=== PATIENT | male | born 1940 | race Caucasian/White ===

== ENCOUNTER 2017-02-18 23:11 | Inpatient (IN) | payer OTHER, MEDICARE ==
[~2017-02-18] VITALS: Ht 167.6 cm; Wt 75.9 kg
[~2017-02-18 23:11] MED LIST: ACID CONTROL20 MG PO; ACID CONTROLLER20 MG PO; ADULT LOW DOSE81 M1 PO; AMBIEN5 M1 PO; AMLODIPINE BES2.5 MG PO; ASPIR 8181 MG PO; ASPIR-TRIN325 M1 PO; ASPIRIN325 MG PO; ASPIRIN81 M1 PO; Antivert PO; Aspirin PO; B-121500 MCG PO; CARDIZEM CD,CA360 MG PO; CHILDREN'S ASPI81 M1 PO; COLACE100 MG PO; COZAAR50 MG PO; CRESTOR40 MG PO; CYANOCOBALAM1000 MCG PO; DIABETA,MICRONAS5 MG PO; DIABETA5 MG PO; Diabeta,Micronase PO; EMETROL ORAL S236 ML PO; EMS NITROSTAT0.4 M1 SL; ENDOCET 5-3251 EACH PO; ESCITALOPRAM OX10 MG PO; ESCITALOPRAM OX20 MG PO; Ecotrin PO; FAMOTIDINE20 MG PO; FLEXERIL10 MG PO; FORTAMET1000 M1 PO; FUROSEMIDE20 MG PO; GABAPENTIN600 MG PO; GAS-X80 MG PO; GLUCOPHAGE1000 MG PO; GLUCOPHAGE500 MG PO; GLYBURIDE5 MG PO; Glyburide PO; HALFPRIN162 MG PO; HYDRALAZINE HCL25 MG PO; HYDROCHLOROTH12.5 M3 NG; HYDROCHLOROTH12.5 M3 PO; HYDROCHLOROTHIA25 MG PO; HYDROCO/APAP; HYDROCODON-ACE1 EAC7 PO; HYDRODIURIL,O12.5 M2 PO; Hydrochlorothiazide PO; IMDUR120 MG PO; IMDUR30 MG PO; IMDUR60 MG PO; ISOSORBIDE MONO30 MG PO; ISOSORBIDE MONO60 MG PO; Imdur PO; JANUVIA100 MG PO; K-DUR10 MEQ PO; KLOR-CON 1010 ME1 PO; LEXAPRO10 MG PO; LEXAPRO5 MG PO; LO-DOSE ASPIRIN81 M1 PO; LOPRESSOR12.5 MG PO; LOPRESSOR25 MG PO; LOPRESSOR50 MG PO; LORTAB 5-325 M1 EACH PO; Lexapro PO; Lopressor PO; METFORMIN HCL1000 MG PO; METOPROLOL ER; METOPROLOL SUC100 MG PO; METOPROLOL TART50 MG PO; MICARDIS HCT1 TABLE1 PO; NEURONTIN600 MG PO; NEXIUM40 MG PO; NITROGLYCERIN0.4 MG SL; NITROLINGUAL S4.9 GM MM; NITROSTAT,NITR0.4 M1 SL; NITROSTAT0.4 MG SL; NORCO 5/3251 TABLET PO; NORVASC2.5 MG PO; NORVASC5 MG PO; Neurontin PO; Nitroglycerin SL; Norvasc PO; OMEGA 3 1,0001 EACH PO; OMEGA III EPA1000 MG PO; OMEGA-3 1,0001 EAC1 PO; OMEGA-3 FISH O1 EAC9 PO; OMEGA-31000 M1 PO; Omega III EPA + DHA PO; PEPCID20 MG PO; PLAVIX75 MG PO; PRAVACHOL40 MG PO; PRAVASTATIN SOD40 MG PO; PREVACID30 MG PO; PRILOSEC20 MG PO; PROBIOTIC1 EAC1 PO; PROTONIX40 MG PO; Pepcid PO; RANEXA1000 MG PO; RANEXA500 MG PO; RANITIDINE HCL150 M1 PO; RANITIDINE HCL150 MG PO; REGLAN10 MG PO; Robitussin, Organidi PO; SALINE NASAL SP45 ML BOTH NARES; SALINE NOSE SPR45 M1 BOTH NARES; TOPROL XL100 MG PO; TYLENOL EXTRA500 MG PO; TYLENOL REGULA325 MG PO; Tylenol Regular Stre PO; VITAMIN B12-FO1 EACH PO; VITAMIN D-32000 UNI2 PO; VITAMIN D-32000 UNIT PO; VITAMIN D1000 UNIT PO; VITAMIN D2000 INTUN PO; VITAMIN D2000 UNIT PO; Vitamin D PO; ZOFRAN4 MG PO
[2017-02-19 00:02] LABS: HEMATOCRIT 46.6 % (38.0-50.0); MCH 30.3 PG (29.0-34.0); MCHC 35.8 G/DL (30.0-36.0); MCV 84.4 FL (86-99); PLATELET COUNT 125 K/uL (156-360); RBC DIS.WIDTH-CV 13.6 % (11.8-14.6); RBC DIS.WIDTH-SD 41.6 % (39-53); RED BLOOD COUNT 5.52 M/uL (4.00-5.50); WHITE BLOOD COUNT 9.5 K/uL (4.1-10.2)
[2017-02-19] MEDS ORDERED: FAMOTIDINE20 MG PO (00:08)
[2017-02-19] MEDS ORDERED: CENTRUM SILVER1 EAC3 PO (00:08)
[2017-02-19 00:11] LABS: PROTHROMBIN TIME 11.3 SEC (10.2-12.9)
[2017-02-19 00:14] LABS: CHLORIDE 97 mEq/L (99-109); POTASSIUM 4.3 mEq/L (3.7-5.4); PTT 28.9 SEC (25-37); SODIUM 132 mEq/L (136-147)
[2017-02-19 00:17] LABS: ANION GAP 13 MEQ/L (2-14)
[2017-02-19 00:19] LABS: GFR ESTIMATE (CALCULATED) 53 mL/min/
[2017-02-19 00:20] LABS: UREA NITROGEN (BUN) 20 mg/dL (9-23)
[2017-02-19 00:29] LABS: TROP-I INTERPRETATION NEGATIVE; TROPONIN-I < 0.01 ng/mL (0.0-0.30)
[2017-02-19 00:36] LABS: GLUCOSE 420 mg/dL (70-99)
[2017-02-19 02:16] LABS: POINT-OF-CARE METER ID UU13113702
[2017-02-19 03:01] LABS: TROP-I INTERPRETATION NEGATIVE; TROPONIN-I 0.01 ng/mL (0.0-0.30)
[2017-02-19 03:25] VITALS: BP 157/78
[2017-02-19 03:40] LABS: POINT-OF-CARE METER ID UU13113700
[2017-02-19 08:25] LABS: TROP-I INTERPRETATION INDETERMINATE; TROPONIN-I 0.41 ng/mL (0.0-0.30)
[2017-02-19 08:56] VITALS: BP 159/77
[2017-02-19 13:27] VITALS: BP 132/78
[2017-02-19 14:08] LABS: TROP-I INTERPRETATION POSITIVE; TROPONIN-I 5.26 ng/mL (0.0-0.30)
[2017-02-19 15:00] VITALS: BP 111/65
[2017-02-19 15:10] LABS: INTER. NORMALIZED RATIO 1.1; PROTHROMBIN TIME 11.6 SEC (10.2-12.9)
[2017-02-19 15:13] LABS: PTT 31.1 SEC (25-37)
[2017-02-19 18:17] LABS: POINT-OF-CARE METER ID UU13113831
[2017-02-19 19:58] VITALS: BP 124/70
[2017-02-19 20:55] LABS: POINT-OF-CARE METER ID UU13113781
[2017-02-19 23:48] VITALS: BP 138/72
[2017-02-20] VITALS (7 sets, daily range): BP systolic 125–148; BP diastolic 63–84
[2017-02-20 06:13] LABS: ANION GAP 6 MEQ/L (2-14); CHLORIDE 102 MEQ/L (99-109); GFR ESTIMATE (CALCULATED) > 59 mL/min/; POTASSIUM 3.9 MEQ/L (3.7-5.4); SAMPLE HEMOLYSIS CHECK 0; SAMPLE ICTERIC CHECK 0; SAMPLE LIPEMIA CHECK 0; SODIUM 137 MEQ/L (136-147); UREA NITROGEN (BUN) 18 mg/dL (9-23)
[2017-02-20 06:16] LABS: GLUCOSE 189 mg/dL (70-99)
[2017-02-20 06:57] LABS: TROP-I INTERPRETATION POSITIVE; TROPONIN-I 8.25 ng/mL (0.0-0.30)
[2017-02-20 07:28] LABS: POINT-OF-CARE METER ID UU13113781
[2017-02-20 11:31] LABS: POINT-OF-CARE METER ID UU13113698
[2017-02-20 13:23] LABS: TROP-I INTERPRETATION POSITIVE; TROPONIN-I 7.34 ng/mL (0.0-0.30)
[2017-02-20 16:17] LABS: POINT-OF-CARE METER ID UU13113698
[2017-02-20 20:44] LABS: POINT-OF-CARE METER ID UU13113698
[2017-02-21 03:12] VITALS: BP 148/82
[2017-02-21 06:39] LABS: ANION GAP 8 MEQ/L (2-14); CHLORIDE 102 MEQ/L (99-109); GFR ESTIMATE (CALCULATED) > 59 mL/min/; GLUCOSE 173 mg/dL (70-99); POTASSIUM 3.9 MEQ/L (3.7-5.4); SAMPLE HEMOLYSIS CHECK 0; SAMPLE ICTERIC CHECK 0; SAMPLE LIPEMIA CHECK 0; SODIUM 137 MEQ/L (136-147); UREA NITROGEN (BUN) 20 mg/dL (9-23)
[2017-02-21 07:50] VITALS: BP 144/72
[2017-02-21 11:30] VITALS: BP 155/81
[2017-02-21 16:02] VITALS: BP 133/75
[2017-02-21 21:00] VITALS: BP 148/82
[2017-02-21 21:30] VITALS: BP 148/82
[2017-02-22 00:10] VITALS: BP 140/80
[2017-02-22 04:05] VITALS: BP 138/84
[2017-02-22 05:31] LABS: HEMATOCRIT 44.1 % (38.0-50.0); MCHC 34.9 G/DL (30.0-36.0); MEAN PLAT.VOLUME 10.3 uM^3 (9.0-12.4); PLATELET COUNT 97 K/uL (156-360); RBC DIS.WIDTH-CV 14.4 % (11.8-14.6); RED BLOOD COUNT 4.96 M/uL (4.00-5.50); WHITE BLOOD COUNT 6.3 K/uL (4.1-10.2)
[2017-02-22 05:32] LABS: MCV 88.9 FL (86-99)
[2017-02-22 05:51] LABS: ANION GAP 9 MEQ/L (2-14); CHLORIDE 102 MEQ/L (99-109); GFR ESTIMATE (CALCULATED) > 59 mL/min/; GLUCOSE 168 mg/dL (70-99); POTASSIUM 4.2 MEQ/L (3.7-5.4); SAMPLE HEMOLYSIS CHECK 0; SAMPLE ICTERIC CHECK 0; SAMPLE LIPEMIA CHECK 0; SODIUM 138 MEQ/L (136-147); UREA NITROGEN (BUN) 21 mg/dL (9-23)
[2017-02-22 07:47] VITALS: BP 163/80
[2017-02-22 08:00] LABS: POINT-OF-CARE METER ID UU13113803; POINT-OF-CARE USER ID ENVKC36
[2017-02-22 16:57] LABS: POINT-OF-CARE USER ID ENVKC36
[2017-02-22 19:30] VITALS: BP 145/55; BP 145/75
== END 2017-02-22 22:51 | disposition short-term general hospital (02) | DRG 281 ==
LOC: EME 23:11 → EDOF 02-19 02:26 → ENRESERV 02-19 02:33 → 5WEST 02-19 03:18 → 4EAST 02-19 10:04 → 5WEST 02-19 10:04 → ENRESERV 02-19 10:05 → 4EAST 02-19 20:01
PROVIDERS: Emergency Medicine; Internal Medicine; Internal Medicine Cardiovascular Disease; Nurse Practitioner Adult Health
DX: I21.4 Non-ST elevation (NSTEMI) myocardial infarction (principal); I25.118 Atherosclerotic heart disease of native coronary artery with other forms of angina pectoris; I25.718 Atherosclerosis of autologous vein coronary artery bypass graft(s) with other forms of angina pectoris; I23.7 Postinfarction angina; I25.82 Chronic total occlusion of coronary artery; I13.0 Hypertensive heart and chronic kidney disease with heart failure and stage 1 through stage 4 chronic kidney disease, or unspecified chronic kidney disease; I50.32 Chronic diastolic (congestive) heart failure; N18.2 Chronic kidney disease, stage 2 (mild); E11.22 Type 2 diabetes mellitus with diabetic chronic kidney disease; J44.9 Chronic obstructive pulmonary disease, unspecified; E11.42 Type 2 diabetes mellitus with diabetic polyneuropathy; E78.5 Hyperlipidemia, unspecified; I25.5 Ischemic cardiomyopathy; I44.7 Left bundle-branch block, unspecified; K21.9 Gastro-esophageal reflux disease without esophagitis; M48.00 Spinal stenosis, site unspecified; I25.2 Old myocardial infarction; Z95.1 Presence of aortocoronary bypass graft; Z95.5 Presence of coronary angioplasty implant and graft; Z95.2 Presence of prosthetic heart valve; Z86.73 Personal history of transient ischemic attack (TIA), and cerebral infarction without residual deficits; Z79.02 Long term (current) use of antithrombotics/antiplatelets; Z79.82 Long term (current) use of aspirin; Z79.84 Long term (current) use of oral hypoglycemic drugs
CPT/HCPCS: 71010; 80048; 82948; 84484; 85027; 85347; 85610; 85730; 93005; 94660; 94799; 99281; 99285; C1760; C1769; C1887; C1894; J1644; J1650; J1815; J2250; J2270; J3010; J7030; J7040

== ENCOUNTER 2017-03-30 16:50 | Inpatient (IN) | payer OTHER, MEDICARE ==
[~2017-03-30] VITALS: Ht 167.6 cm; Wt 76.7 kg
[~2017-03-30 16:50] MED LIST changes: +CENTRUM SILVER1 EAC3 PO
[2017-03-30 17:28] LABS: BASE EXCESS -2.5 mEq/L (-3 to +3); BICARBONATE 21.8 mEq/L (22-26); CARBOXY HGB 2.3 % (0-5); METHEMOGLOBIN 1.2 % (0-1.5); PCO2 36 mm Hg (35-45); PO2 71 mm Hg (80-100); pH 7.39 (7.35-7.45)
[2017-03-30 17:29] LABS: COMMENTS - BLOOD GASES A+C+; DEVICE NC; O2 FLOW 4 L/MIN; SITE LR; TOTAL RESP RATE 22 resp/min
[2017-03-30 18:24] LABS: EOSINOPHIL (%) 0 % (0-5); HEMATOCRIT 48.3 % (38.0-50.0); IMMATURE GRANULOCYTE (%) 0.6 % (0.0-0.7); INSTRUMENT ABS NEUTROPHIL CT 5.2 K/uL; LYMPHOCYTE COUNT 1.1 K/uL (1.0-2.8); MCH 30.1 PG (29.0-34.0); MCHC 34.6 G/DL (30.0-36.0); MCV 87.2 FL (86-99); MEAN PLAT.VOLUME 10.4 uM^3 (9.0-12.4); MONOCYTE (%) 6.6 % (3-12); MONOCYTE COUNT 0.5 K/uL (0-0.8); NEUTROPHIL COUNT 5.2 K/uL (1.8-6.4); PLATELET COUNT 114 K/uL (156-360); RBC DIS.WIDTH-SD 44.5 % (39-53); RED BLOOD COUNT 5.54 M/uL (4.00-5.50); WHITE BLOOD COUNT 6.8 K/uL (4.1-10.2)
[2017-03-30 18:28] LABS: INTER. NORMALIZED RATIO 1.1; PROTHROMBIN TIME 12.5 SEC (10.2-12.9)
[2017-03-30 18:31] LABS: PTT 27.3 SEC (25-37)
[2017-03-30 18:34] LABS: CHLORIDE 105 mEq/L (99-109); POTASSIUM 4.3 mEq/L (3.7-5.4); SODIUM 139 mEq/L (136-147)
[2017-03-30 18:36] LABS: GLUCOSE 237 mg/dL (70-99)
[2017-03-30 18:38] LABS: ANION GAP 15 MEQ/L (2-14)
[2017-03-30 18:40] LABS: GFR ESTIMATE (CALCULATED) > 59 mL/min/
[2017-03-30 18:41] LABS: UREA NITROGEN (BUN) 12 mg/dL (9-23)
[2017-03-30 18:43] LABS: TROP-I INTERPRETATION NEGATIVE; TROPONIN-I < 0.01 ng/mL (0.0-0.30)
[2017-03-30] MEDS ORDERED: TOPROL XL50 MG PO (19:20)
[2017-03-30 22:29] VITALS: BP 109/61
[2017-03-30 23:35] VITALS: BP 112/59
[2017-03-31 03:36] LABS: EOSINOPHIL (%) 0 % (0-5); HEMATOCRIT 46.3 % (38.0-50.0); IMMATURE GRANULOCYTE (%) 0.6 % (0.0-0.7); INSTRUMENT ABS NEUTROPHIL CT 4.4 K/uL; LYMPHOCYTE COUNT 0.5 K/uL (1.0-2.8); MCH 29.8 PG (29.0-34.0); MCHC 34.1 G/DL (30.0-36.0); MCV 87.4 FL (86-99); MEAN PLAT.VOLUME 10.4 uM^3 (9.0-12.4); MONOCYTE (%) 2.2 % (3-12); MONOCYTE COUNT 0.1 K/uL (0-0.8); NEUTROPHIL (%) 86.9 % (45-76); NEUTROPHIL COUNT 4.4 K/uL (1.8-6.4); PLATELET COUNT 113 K/uL (156-360); RBC DIS.WIDTH-CV 13.9 % (11.8-14.6); RBC DIS.WIDTH-SD 43.8 % (39-53)
[2017-03-31 03:41] VITALS: BP 110/60
[2017-03-31 03:48] LABS: CHLORIDE 97 mEq/L (99-109); SODIUM 136 mEq/L (136-147)
[2017-03-31 03:49] LABS: MAGNESIUM 2.2 mg/dL (1.3-2.7); POTASSIUM 5.4 mEq/L (3.7-5.4)
[2017-03-31 03:54] LABS: ALKALINE PHOSPHATASE 93 IU/L (3-129); GFR ESTIMATE (CALCULATED) 42 mL/min/
[2017-03-31 03:55] LABS: UREA NITROGEN (BUN) 20 mg/dL (9-23)
[2017-03-31 03:59] LABS: GLUCOSE 397 mg/dL (70-99)
[2017-03-31 04:05] LABS: TOTAL BILIRUBIN 1.5 mg/dL (0.0-1.0)
[2017-03-31 07:37] VITALS: BP 185/88
[2017-03-31 07:45] LABS: POINT-OF-CARE METER ID UU14188625
[2017-03-31 08:07] VITALS: BP 160/86
[2017-03-31 11:22] VITALS: BP 130/65
[2017-03-31 15:29] VITALS: BP 106/55
[2017-03-31 19:42] VITALS: BP 111/59
[2017-03-31 21:09] LABS: POINT-OF-CARE METER ID UU14188625
[2017-04-01] VITALS (9 sets, daily range): BP systolic 130–177; BP diastolic 62–94
[2017-04-01 01:30] LABS: ADD MIUA? NO; BILIRUBIN NEGATIVE; BLOOD NEGATIVE; COLOR YELLOW ((YELLOW)); GLUCOSE (STRIP) >=500; KETONES NEGATIVE; LEUKOCYTES NEGATIVE; NITRITE NEGATIVE; PROTEIN (STRIP) NEGATIVE; SPECIFIC GRAVITY 1.015 (1.000-1.030); UCUL ADDED? NO; UROBILINOGEN 0.2 MG/DL (0.2-1.0)
[2017-04-01 05:27] LABS: EOSINOPHIL (%) 0.4 % (0-5); HEMATOCRIT 43.9 % (38.0-50.0); IMMATURE GRANULOCYTE (%) 0.3 % (0.0-0.7); INSTRUMENT ABS NEUTROPHIL CT 8.1 K/uL; LYMPHOCYTE COUNT 1.8 K/uL (1.0-2.8); MCH 30.9 PG (29.0-34.0); MCHC 35.3 G/DL (30.0-36.0); MCV 87.5 FL (86-99); MEAN PLAT.VOLUME 10.7 uM^3 (9.0-12.4); MONOCYTE (%) 8.7 % (3-12); NEUTROPHIL (%) 74.1 % (45-76); NEUTROPHIL COUNT 8.1 K/uL (1.8-6.4); PLATELET COUNT 111 K/uL (156-360); RBC DIS.WIDTH-CV 14.3 % (11.8-14.6); RBC DIS.WIDTH-SD 45.1 % (39-53); RED BLOOD COUNT 5.02 M/uL (4.00-5.50)
[2017-04-01 05:55] LABS: ALKALINE PHOSPHATASE 68 IU/L (3-129); ANION GAP 6 MEQ/L (2-14); CHLORIDE 98 MEQ/L (99-109); GFR ESTIMATE (CALCULATED) 45 mL/min/; SAMPLE HEMOLYSIS CHECK 0; SAMPLE ICTERIC CHECK 0; SAMPLE LIPEMIA CHECK 0; SODIUM 137 MEQ/L (136-147); TOTAL BILIRUBIN 1.1 MG/DL (0.0-1.0)
[2017-04-01 06:36] LABS: GLUCOSE 186 mg/dL (70-99); UREA NITROGEN (BUN) 37 mg/dL (9-23)
[2017-04-01 09:54] LABS: TROP-I INTERPRETATION NEGATIVE; TROPONIN-I < 0.01 ng/mL (0.0-0.30)
[2017-04-01 15:23] LABS: TROP-I INTERPRETATION NEGATIVE; TROPONIN-I < 0.01 ng/mL (0.0-0.30)
[2017-04-01 16:10] LABS: POINT-OF-CARE METER ID UU13113717
[2017-04-01 21:10] LABS: TROP-I INTERPRETATION NEGATIVE; TROPONIN-I < 0.01 ng/mL (0.0-0.30)
[2017-04-01 21:42] LABS: POINT-OF-CARE METER ID UU13113717
[2017-04-01 23:24] LABS: POINT-OF-CARE METER ID UU14188625
[2017-04-02 03:57] VITALS: BP 152/81
[2017-04-02 06:42] LABS: EOSINOPHIL (%) 1.4 % (0-5); EOSINOPHIL COUNT 0.1 K/uL (0-0.3); HEMATOCRIT 45.6 % (38.0-50.0); IMMATURE GRANULOCYTE (%) 0.5 % (0.0-0.7); INSTRUMENT ABS NEUTROPHIL CT 5.9 K/uL; LYMPHOCYTE COUNT 1.8 K/uL (1.0-2.8); MCH 31.3 PG (29.0-34.0); MCHC 35.1 G/DL (30.0-36.0); MCV 89.1 FL (86-99); MONOCYTE (%) 7.5 % (3-12); MONOCYTE COUNT 0.6 K/uL (0-0.8); NEUTROPHIL (%) 69.5 % (45-76); NEUTROPHIL COUNT 5.9 K/uL (1.8-6.4); PLATELET COUNT 122 K/uL (156-360); RBC DIS.WIDTH-CV 14.5 % (11.8-14.6); RBC DIS.WIDTH-SD 46.6 % (39-53); RED BLOOD COUNT 5.12 M/uL (4.00-5.50); WHITE BLOOD COUNT 8.5 K/uL (4.1-10.2)
[2017-04-02 07:17] LABS: ALKALINE PHOSPHATASE 76 IU/L (3-129); ANION GAP 10 MEQ/L (2-14); CHLORIDE 100 MEQ/L (99-109); GFR ESTIMATE (CALCULATED) > 59 mL/min/; GLUCOSE 139 mg/dL (70-99); POTASSIUM 4.1 MEQ/L (3.7-5.4); SAMPLE HEMOLYSIS CHECK 0; SAMPLE ICTERIC CHECK 0; SAMPLE LIPEMIA CHECK 0; SODIUM 138 MEQ/L (136-147); TOTAL BILIRUBIN 1.2 MG/DL (0.0-1.0); UREA NITROGEN (BUN) 28 mg/dL (9-23)
[2017-04-02 07:56] VITALS: BP 168/92
[2017-04-02 08:17] LABS: POINT-OF-CARE METER ID UU14188625
[2017-04-02 11:19] VITALS: BP 128/69
[2017-04-02 15:57] VITALS: BP 127/70
[2017-04-02 17:30] LABS: POINT-OF-CARE METER ID UU14174225
[2017-04-02 19:38] VITALS: BP 142/85
[2017-04-02 23:52] VITALS: BP 103/63
[2017-04-03 03:57] VITALS: BP 129/69
[2017-04-03 06:11] LABS: EOSINOPHIL (%) 3.1 % (0-5); EOSINOPHIL COUNT 0.2 K/uL (0-0.3); HEMATOCRIT 45.7 % (38.0-50.0); IMMATURE GRANULOCYTE (%) 0.6 % (0.0-0.7); INSTRUMENT ABS NEUTROPHIL CT 4.5 K/uL; LYMPHOCYTE COUNT 1.5 K/uL (1.0-2.8); MCH 29.4 PG (29.0-34.0); MCHC 33.7 G/DL (30.0-36.0); MCV 87.2 FL (86-99); MEAN PLAT.VOLUME 10.5 uM^3 (9.0-12.4); MONOCYTE (%) 8.8 % (3-12); MONOCYTE COUNT 0.6 K/uL (0-0.8); NEUTROPHIL (%) 65.4 % (45-76); NEUTROPHIL COUNT 4.5 K/uL (1.8-6.4); PLATELET COUNT 133 K/uL (156-360); RBC DIS.WIDTH-SD 44.4 % (39-53); RED BLOOD COUNT 5.24 M/uL (4.00-5.50); WHITE BLOOD COUNT 6.9 K/uL (4.1-10.2)
[2017-04-03 06:31] LABS: ANION GAP 7 MEQ/L (2-14); CHLORIDE 100 MEQ/L (99-109); GFR ESTIMATE (CALCULATED) > 59 mL/min/; GLUCOSE 158 mg/dL (70-99); POTASSIUM 3.9 MEQ/L (3.7-5.4); SAMPLE HEMOLYSIS CHECK 0; SAMPLE ICTERIC CHECK 0; SAMPLE LIPEMIA CHECK 0; SODIUM 137 MEQ/L (136-147); UREA NITROGEN (BUN) 21 mg/dL (9-23)
[2017-04-03 07:25] VITALS: BP 118/71
[2017-04-03 11:19] VITALS: BP 131/75
[2017-04-03 11:26] LABS: POINT-OF-CARE METER ID UU14174225
[2017-04-03 15:19] VITALS: BP 103/67
[2017-04-03 16:48] LABS: POINT-OF-CARE METER ID UU14188625
[2017-04-03 19:34] VITALS: BP 144/80
[2017-04-03 21:31] LABS: POINT-OF-CARE METER ID UU14174225
[2017-04-03 23:36] VITALS: BP 123/65
[2017-04-04 03:45] VITALS: BP 136/72
[2017-04-04 06:55] LABS: EOSINOPHIL (%) 2.6 % (0-5); EOSINOPHIL COUNT 0.2 K/uL (0-0.3); HEMATOCRIT 45.5 % (38.0-50.0); IMMATURE GRANULOCYTE (%) 1.1 % (0.0-0.7); IMMATURE GRANULOCYTE COUNT 0.1 K/uL; INSTRUMENT ABS NEUTROPHIL CT 4.4 K/uL; LYMPHOCYTE COUNT 1.4 K/uL (1.0-2.8); MCH 29.8 PG (29.0-34.0); MCHC 34.1 G/DL (30.0-36.0); MCV 87.3 FL (86-99); MEAN PLAT.VOLUME 10.6 uM^3 (9.0-12.4); MONOCYTE (%) 8.2 % (3-12); MONOCYTE COUNT 0.5 K/uL (0-0.8); NEUTROPHIL (%) 66.7 % (45-76); NEUTROPHIL COUNT 4.4 K/uL (1.8-6.4); PLATELET COUNT 129 K/uL (156-360); RBC DIS.WIDTH-CV 13.9 % (11.8-14.6); RBC DIS.WIDTH-SD 43.9 % (39-53); RED BLOOD COUNT 5.21 M/uL (4.00-5.50); WHITE BLOOD COUNT 6.6 K/uL (4.1-10.2)
[2017-04-04 07:10] LABS: ANION GAP 9 MEQ/L (2-14); CHLORIDE 102 MEQ/L (99-109); GFR ESTIMATE (CALCULATED) > 59 mL/min/; GLUCOSE 152 mg/dL (70-99); SAMPLE HEMOLYSIS CHECK 0; SAMPLE ICTERIC CHECK 0; SAMPLE LIPEMIA CHECK 0; SODIUM 138 MEQ/L (136-147); UREA NITROGEN (BUN) 22 mg/dL (9-23)
[2017-04-04 07:28] VITALS: BP 142/75
[2017-04-04] MEDS ORDERED: BENZONATATE100 MG PO (10:43)
[2017-04-04] MEDS ORDERED: ENTRESTO 24 MG1 EACH PO (10:44)
[2017-04-04 11:29] VITALS: BP 147/84
== END 2017-04-04 11:51 | disposition home or self-care (01) | DRG 291 ==
LOC: EME 16:50 → EDOF 20:47 → 5SOUTH 20:47 → ENRESERV 20:49 → 5SOUTH 21:59
PROVIDERS: Emergency Medicine; Hospitalist; Internal Medicine; Physician Assistant Medical
DX: I50.23 Acute on chronic systolic (congestive) heart failure (principal); J18.9 Pneumonia, unspecified organism; I25.5 Ischemic cardiomyopathy; I65.29 Occlusion and stenosis of unspecified carotid artery; D69.6 Thrombocytopenia, unspecified; E11.22 Type 2 diabetes mellitus with diabetic chronic kidney disease; J96.01 Acute respiratory failure with hypoxia; N17.9 Acute kidney failure, unspecified; J44.0 Chronic obstructive pulmonary disease with (acute) lower respiratory infection; N18.3 Chronic kidney disease, stage 3 (moderate); I13.0 Hypertensive heart and chronic kidney disease with heart failure and stage 1 through stage 4 chronic kidney disease, or unspecified chronic kidney disease; R09.89 Other specified symptoms and signs involving the circulatory and respiratory systems; N40.0 Benign prostatic hyperplasia without lower urinary tract symptoms; T50.2X5A Adverse effect of carbonic-anhydrase inhibitors, benzothiadiazides and other diuretics, initial encounter; R07.89 Other chest pain; I25.10 Atherosclerotic heart disease of native coronary artery without angina pectoris; K76.0 Fatty (change of) liver, not elsewhere classified; I35.0 Nonrheumatic aortic (valve) stenosis; G47.33 Obstructive sleep apnea (adult) (pediatric); E78.5 Hyperlipidemia, unspecified; K21.9 Gastro-esophageal reflux disease without esophagitis; R00.0 Tachycardia, unspecified; Z95.1 Presence of aortocoronary bypass graft; I25.2 Old myocardial infarction; Z95.2 Presence of prosthetic heart valve; Z86.73 Personal history of transient ischemic attack (TIA), and cerebral infarction without residual deficits; Z95.5 Presence of coronary angioplasty implant and graft; Z90.49 Acquired absence of other specified parts of digestive tract
CPT/HCPCS: 36600; 71010; 71020; 71250; 74176; 76770; 80048; 80053; 81003; 82803; 82948; 83605; 83735; 83880; 84484; 85025; 85379; 85610; 85730; 87040; 87070; 87205; 93005; 93306; 94010; 94640; 94640 76; 94660; 94799; 99202; 99281; 99285; J0692; J0696; J1644; J1815; J1940; J2405; J2930; J7050